=== PATIENT | female | born 1970 | race African-American/Black ===

== ENCOUNTER → 2018-09-25 | Outpatient (CLI) | payer OTHER ==
[2015-12-29 14:50] VITALS: BP 126/65
[~2018-09-25] MED LIST: DOCU-109 PO; ERGO500027 PO; FENO48TA16 PO; FLUO20CA16 PO; FLUT9.9S NS; HYDR12.58 PO; LORA5SOL7 PO; OXYC1TAB15 PO; PEG15DRO2 OP; PHEN15CA2 PO; VARE1TAB21 PO; ZOLP5TAB PO
--- NOTE | 2018-09-25 09:51 | KCIC ---
EXAM: Bilateral diagnostic mammogram. HISTORY: 47-year-old female presents with asymmetry and right greater than left breast size. TECHNIQUE: Full-field digital craniocaudal and mediolateral oblique views of both breasts are obtained for evaluation. Computer aided detection with U[employer]ense[employer] software version 9.3 was applied. COMPARISON: 01/03/2016, 12/26/2015, 08/25/2014 BREAST PARENCHYMAL DENSITY: Level B - Scattered fibroglandular densities. FINDINGS: There is no new suspicious mass, microcalcification or region of architectural distortion. There is stable mild asymmetry in the size of the right greater than left breast. The greater than 4 year course of stability favors physiologic asymmetry. There is stable nodular densities when allowing for differences in patient positioning. There is no new suspicious mammographic finding. IMPRESSION: BI-RADS Category 2: Benign finding(s). RECOMMENDATION: Annual mammography is recommended. If your mammogram demonstrates that you have dense breast tissue, which could hide abnormalities, and if you have other risk factors for breast cancer that have been identified, you might benefit from supplemental screening tests that may be suggested by your ordering physician. Dense breast tissue, in and of itself, is a relatively common condition. This information is not provided to cause undue concern, but rather to raise your awareness and to promote discussion with your physician regarding the presence of other risk factors, in addition to dense breast tissue. A report of your mammography results will be sent to you and your physician. You should contact your physician if you have any questions or concerns regarding this report. Mammography is a sensitive method for finding small breast cancers, but it does not detect them all and is not a substitute for careful clinical examination. A negative mammogram does not negate a clinically suspicious finding and should not result in delay in biopsying a clinically suspicious abnormality. PQRS compliance statement - Patient information was entered into a reminder system with a target due date for the next mammogram. "Our facility is accredited by the [employer] Mammography Program." Electronically signed by: Lizet Kline MD (09/25/2018 9:48 AM) [facility]
== END | disposition home or self-care (01) ==
LOC: KCIC MAMMO 08:50
PROVIDERS: ATTEND Nurse Practitioner Family
DX: N62 Hypertrophy of breast (principal); N64.89 Other specified disorders of breast
CPT/HCPCS: 77066

== ENCOUNTER 2018-10-12 05:35 | Inpatient (IN) | payer OTHER ==
[~2018-10-12] VITALS: Ht 180.3 cm; Wt 133.8 kg
[2018-10-12] VITALS (11 sets, daily range): BP systolic 120–139; BP diastolic 75–82
[~2018-10-12 05:35] MED LIST changes: -DOCU-109 PO; -ERGO500027 PO; -FENO48TA16 PO; -FLUT9.9S NS; -HYDR12.58 PO; -OXYC1TAB15 PO; -PEG15DRO2 OP; -VARE1TAB21 PO
[2018-10-12] MEDS ORDERED: FAMOTIDINE 20 MG/2 ML VIAL IVP ONE (06:00)
[2018-10-12] MEDS ORDERED: IV NORMAL SALINE 1000ML BAG 1,000 ML IV ONE (06:00)
[2018-10-12] MEDS ORDERED: ONDANSETRON PF 4 MG/2 ML VIAL. IV ONE (06:00)
[2018-10-12] MEDS ORDERED: KETOROLAC 30 MG/ML VIAL. IV ONE (06:00)
--- NOTE | 2018-10-12 06:30 | PHYS DOC ---
Adult General Chief Complaint Chief Complaint: ABDOMINAL PAIN HPI HPI Patient is a 47 year old female who presents with complaining of abdominal pain and nausea and vomiting. Patient states she woke up at 0440 this morning with cramping generalized abdominal pain without radiation and nausea. Patient states she had 1 episode of nonbloody vomiting and a normal bowel movement. Patient rated her pain 9/10 and denies fever and chills, urinary symptoms, chest pain and shortness of breath. Patient states she had few episodes of mild abdominal pain in period of several months and did not seek medical attention. Review of Systems Review of Systems Constitutional: Denies fever or chills [] Eyes: Denies change in visual acuity, redness, or eye pain [] HENT: Denies nasal congestion or sore throat [] Respiratory: Denies cough or shortness of breath [] Cardiovascular: No additional information not addressed in HPI [] GI: Reports abdominal pain, nausea, vomiting, denies bloody stools or diarrhea [] : Denies dysuria or hematuria [] Musculoskeletal: Denies back pain or joint pain [] Integument: Denies rash or skin lesions [] Neurologic: Denies headache, focal weakness or sensory changes [] Endocrine: Denies polyuria or polydipsia [] All other systems were reviewed and found to be within normal limits, except as documented in this note. Current Medications Current Medications Current Medications Medications (Trade) Dose Ordered Sig/Dianne Start Time Stop Time Status Last Admin Dose Admin Famotidine (Pepcid Vial) 20 mg 1X ONCE 10/12/18 06:00 10/12/18 06:01 DC 10/12/18 06:24 20 MG Fentanyl Citrate (Fentanyl 2ml Vial) 50 mcg 1X ONCE 10/12/18 10:00 10/12/18 10:01 DC 10/12/18 10:03 50 MCG Ketorolac Tromethamine (Toradol 30mg Vial) 15 mg 1X ONCE 10/12/18 06:00 10/12/18 06:01 DC 10/12/18 06:25 15 MG Ondansetron HCl (Zofran) 4 mg 1X ONCE 10/12/18 06:00 10/12/18 06:01 DC 10/12/18 06:24 4 MG Sodium Chloride 1,000 ml @ 1,000 mls/hr 1X ONCE 10/12/18 06:00 10/12/18 06:59 DC 10/12/18 06:24 1,000 MLS/HR Allergies Allergies Allergies Coded Allergies Type Severity Reaction Last Updated Verified Penicillins Allergy Intermediate 12/29/15 No Physical Exam Physical Exam Constitutional: Well developed, well nourished, mild distress, non-toxic appearance. [] HENT: Normocephalic, atraumatic, oropharynx moist. Eyes: PERRLA, EOMI, conjunctiva normal, no discharge. [] Neck: Normal range of motion, no tenderness, supple, no stridor. [] Cardiovascular:Heart rate regular rhythm, no murmur [] Lungs & Thorax: Bilateral breath sounds clear to auscultation [] Abdomen: Bowel sounds normal, soft, positive Rodrigez's sign, no masses, no pulsatile masses. [] Skin: Warm, dry, no erythema, no rash. [] Back: No tenderness, no CVA tenderness. [] Extremities: No tenderness, no cyanosis, no clubbing, ROM intact, no edema. [] Neurologic: Alert and oriented X 3, normal motor function, normal sensory function, no focal deficits noted. [] Psychologic: Affect normal, judgement normal, mood normal. [] Current Patient Data Vital Signs Vital Signs Date Time Temp Pulse Resp B/P (MAP) Pulse Ox O2 Delivery O2 Flow Rate FiO2 10/12/18 10:03 18 98 10/12/18 06:43 98.0 81 134/73 (93) Room Air 98.0 Lab Values Laboratory Tests Test 10/12/18 05:00 10/12/18 05:13 10/12/18 05:55 Troponin I Quantitative < 0.017 ng/mL (0.000-0.055) White Blood Count 5.8 x10^3/uL (4.0-11.0) Red Blood Count 4.75 x10^6/uL (3.50-5.40) Hemoglobin 12.5 g/dL (12.0-15.5) Hematocrit 38.4 % (36.0-47.0) Mean Corpuscular Volume 81 fL (79-100) Mean Corpuscular Hemoglobin 26 pg (25-35) Mean Corpuscular Hemoglobin Concent 33 g/dL (31-37) Red Cell Distribution Width 15.7 % (11.5-14.5) H Platelet Count 162 x10^3/uL (140-400) Neutrophils (%) (Auto) 61 % (31-73) Lymphocytes (%) (Auto) 29 % (24-48) Monocytes (%) (Auto) 8 % (0-9) Eosinophils (%) (Auto) 1 % (0-3) Basophils (%) (Auto) 0 % (0-3) Neutrophils # (Auto) 3.5 x10^3uL (1.8-7.7) Lymphocytes # (Auto) 1.7 x10^3/uL (1.0-4.8) Monocytes # (Auto) 0.5 x10^3/uL (0.0-1.1) Eosinophils # (Auto) 0.1 x10^3/uL (0.0-0.7) Basophils # (Auto) 0.0 x10^3/uL (0.0-0.2) Sodium Level 144 mmol/L (136-145) Potassium Level 3.9 mmol/L (3.5-5.1) Chloride Level 106 mmol/L (98-107) Carbon Dioxide Level 29 mmol/L (21-32) Anion Gap 9 (6-14) Blood Urea Nitrogen 21 mg/dL (7-20) H Creatinine 1.0 mg/dL (0.6-1.0) Estimated GFR (Cockcroft-Gault) 72.5 BUN/Creatinine Ratio 21 (6-20) H Glucose Level 110 mg/dL (70-99) H Calcium Level 9.0 mg/dL (8.5-10.1) Magnesium Level 1.8 mg/dL (1.8-2.4) Total Bilirubin 0.2 mg/dL (0.2-1.0) Aspartate Amino Transferase (AST) 39 U/L (15-37) H Alanine Aminotransferase (ALT) 64 U/L (14-59) H Alkaline Phosphatase 78 U/L (46-116) Total Protein 7.0 g/dL (6.4-8.2) Albumin 3.3 g/dL (3.4-5.0) L Albumin/Globulin Ratio 0.9 (1.0-1.7) L Lipase 178 U/L (73-393) Urine Collection Type Unknown Urine Color Yellow Urine Clarity Clear Urine pH 5.5 Urine Specific [place] >=1.030 Urine Protein Negative mg/dL (NEG-TRACE) Urine Glucose (UA) Negative mg/dL (NEG) Urine Ketones (Stick) Negative mg/dL (NEG) Urine Blood Negative (NEG) Urine Nitrite Negative (NEG) Urine Bilirubin Negative (NEG) Urine Urobilinogen Dipstick 0.2 mg/dL (0.2 mg/dL) Urine Leukocyte Esterase Negative (NEG) Urine RBC 0 /HPF (0-2) Urine WBC 0 /HPF (0-4) Urine Squamous Epithelial Cells Few /LPF Urine Bacteria 0 /HPF (0-FEW) Laboratory Tests 10/12/18 05:13 Laboratory Tests 10/12/18 05:13 EKG EKG [] Radiology/Procedures Radiology/Procedures [facility] [address] [place] [address] IMAGING REPORT Signed PATIENT: ISIDRA LYNCH ACCOUNT: [id number] : 1970 LOCATION: ER AGE: 47 SEX: F EXAM STATUS: REG ER ORD. PHYSICIAN: LISSETTE LOCKHART MD REASON: abdominal pain and nausea and vomiting. PROCEDURE: ABDOMEN LTD Examination: Ultrasound abdomen limited History: History of abdominal pain, nausea, vomiting Comparison: None available Findings: Examination limited due to patient body habitus. The echogenicity of the liver grossly appears unremarkable the common bile duct measures 2.8 mm in transverse dimension. Echogenicity is identified in the gallbladder likely gallstones. The right kidney measures 12.4 cm in length. Impression: Cholelithiasis. DICTATED and SIGNED BY: YOSEF PEDRAZA MD DATE: 10/12/18 0956 Course & Med Decision Making Course & Med Decision Making Pertinent Labs and Imaging studies reviewed. (See chart for details) Evaluation of patient in ER showed 47-year-old male patient with complaining of abdominal pain and nausea and vomiting. Patient had positive Rodrigez sign with elevation of liver function tests. Patient had coronary ecchymoses. Patient felt better with treatment with IV fluid, Zofran, Toradol and fentanyl in ER. On- call surgeon Dr. Espinosa consulted at [facility] and recommended to admit patient for possible cholecystectomy today.Patient requiring admission for further evaluation and treatment. Discussed with Dr. Copeland who is in agreement with admission. Discussed findings and plan with patient and family, who acknowledge understanding and agreement. Dragon Disclaimer Dragon Disclaimer This electronic medical record was generated, in whole or in part, using a voice recognition dictation system. Departure Departure Impression: Primary Impression: Biliary colic Additional Impressions: Cholelithiasis Dehydration Elevated liver function tests Morbid obesity with BMI of 40.0-44.9, adult Disposition: 09 ADMITTED INPATIENT (at 1029) Admitting Physician: MARY (Dr. Copeland accepted admission at 1028) Condition: IMPROVED Referrals: BIENVENIDO JACOBS-[facility] (PCP) Problem Qualifiers Additional Impressions: Cholelithiasis Cholelithiasis location: gallbladder Cholecystitis presence: with cholecystitis Cholecystitis acuity: acute Biliary obstruction: without biliary obstruction Qualified Codes: K80.00 - Calculus of gallbladder with acute cholecystitis without obstruction LISSETTE LOCKHART MD Oct 12, 2018 06:30
[2018-10-12 06:42] LABS: GFR 72.5; POTASSIUM 3.9 mmol/L (3.5-5.1)
[2018-10-12 06:54] LABS: ALBUMIN 3.3 g/dL (3.4-5.0); ALBUMIN/GLOBULIN RATIO 0.9 (1.0-1.7); MAGNESIUM 1.8 mg/dL (1.8-2.4); TOTAL BILIRUBIN 0.2 mg/dL (0.2-1.0)
[2018-10-12 06:58] LABS: BILIRUBIN,URINE NEGATIVE (NEG); CLARITY,URINE CLEAR; COLOR,URINE YELLOW; NITRITE,URINE NEGATIVE (NEG); PH,URINE 5.5; PROTEIN,URINE NEGATIVE (NEG-TRACE); UROBILINOGEN,URINE 0.2 mg/dL (0.2 mg/dL)
[2018-10-12 07:13] LABS: BACTERIA,URINE 0 /HPF (0-FEW); RBC,URINE 0 /HPF (0-2); SQUAMOUS EPITHELIAL CELL,UR FEW /LPF; WBC,URINE 0 /HPF (0-4)
[2018-10-12 07:13] LABS: BASO % 0 % (0-3); EOS # 0.1 x10^3/uL (0.0-0.7); EOS % 1 % (0-3); HEMATOCRIT 38.4 % (36.0-47.0); HEMOGLOBIN 12.5 g/dL (12.0-15.5); LYMPH # 1.7 x10^3/uL (1.0-4.8); LYMPH % 29 % (24-48); MEAN CORPUSCULAR HEMOGLOBIN 26 pg (25-35); MEAN CORPUSCULAR HGB CONC 33 g/dL (31-37); MEAN CORPUSCULAR VOLUME 81 fL (79-100); MONO # 0.5 x10^3/uL (0.0-1.1); MONO % 8 % (0-9); NEUT # 3.5 x10^3uL (1.8-7.7); NEUT % 61 % (31-73); PLATELET COUNT 162 x10^3/uL (140-400); RED BLOOD COUNT 4.75 x10^6/uL (3.50-5.40); RED CELL DISTRIBUTION WIDTH 15.7 % (11.5-14.5); WHITE BLOOD COUNT 5.8 x10^3/uL (4.0-11.0)
[2018-10-12] MEDS ORDERED: fentaNYL PF VIAL 100 MCG/2 ML VIAL IV ONE (10:00)
--- NOTE | 2018-10-12 10:01 | RAD ---
Examination: Ultrasound abdomen limited History: History of abdominal pain, nausea, vomiting Comparison: None available Findings: Examination limited due to patient body habitus. The echogenicity of the liver grossly appears unremarkable the common bile duct measures 2.8 mm in transverse dimension. Echogenicity is identified in the gallbladder likely gallstones. The right kidney measures 12.4 cm in length. Impression: Cholelithiasis.
[2018-10-12] MEDS: IV NORMAL SALINE 1000ML BAG 1,000 ML IV SCH ×2 (10:28→17:08)
--- NOTE | 2018-10-12 11:16 | PDOC1 ---
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 Current Medications: Current Medications Current Medications Ondansetron HCl (Zofran) 4 mg 1X ONCE IV Last administered on 10/12/18at 06:24; Start 10/12/18 at 06:00; Stop 10/12/18 at 06:01; Status DC Famotidine (Pepcid Vial) 20 mg 1X ONCE IVP Last administered on 10/12/18at 06:24; Start 10/12/18 at 06:00; Stop 10/12/18 at 06:01; Status DC Ketorolac Tromethamine (Toradol 30mg Vial) 15 mg 1X ONCE IV Last administered on 10/12/18at 06:25; Start 10/12/18 at 06:00; Stop 10/12/18 at 06:01; Status DC Sodium Chloride 1,000 ml @ 1,000 mls/hr 1X ONCE IV Last administered on 10/12/18at 06:24; Start 10/12/18 at 06:00; Stop 10/12/18 at 06:59; Status DC Fentanyl Citrate (Fentanyl 2ml Vial) 50 mcg 1X ONCE IV Last administered on 10/12/18at 10:03; Start 10/12/18 at 10:00; Stop 10/12/18 at 10:01; Status DC Sodium Chloride 1,000 ml @ 150 mls/hr Q6H40M IV ; Start 10/12/18 at 10:28; Stop 10/13/18 at 10:27 Active Scripts Active Reported Ambien (Zolpidem Tartrate) 5 Mg Tablet 1 Tab PO QHS Claritin (Loratadine) 5 Mg/5 Ml Solution 5 Ml PO DAILY Phentermine Hcl 15 Mg Capsule 1 Cap PO DAILY Prozac (Fluoxetine Hcl) 20 Mg Capsule 1 Cap PO DAILYWBKFT ROS: Review of Systems Review of System REVIEW OF SYSTEMS: GENERAL: Denies weakness SKIN: No bruising, hair changes or rashes. EYES: No blurred, double or loss of vision. NOSE AND THROAT: No history of nosebleeds, hoarseness or sore throat. HEART: No history of palpitations, chest pain or shortness of breath on exertion. LUNGS: Denies cough, hemoptysis, wheezing or shortness of breath. GASTROINTESTINAL: Complains of abdominal pain and nausea GENITOURINARY: No history of frequency, urgency, hesitancy or nocturia. NEUROLOGIC: Denies history of numbness, tingling, tremor or weakness. PSYCHIATRIC: No history of panic, anxiety or depression. ENDOCRINE: No history of heat or cold intolerance, polyuria or polydipsia. EXTREMITIES: Denies muscle weakness, joint pain, pain on walking or stiffness. Physical Exam: Vital Signs: Vital Signs Date Time Temp Pulse Resp B/P (MAP) Pulse Ox O2 Delivery O2 Flow Rate FiO2 10/12/18 10:03 18 98 10/12/18 06:43 98.0 81 134/73 (93) Room Air 98.0 Physcial Exam: GEN.: No apparent distress. Alert and oriented. HEENT: Head is normocephalic, atraumatic NECK: Supple, no JVD LUNGS: Clear to auscultation without rhonchi or wheezing HEART: RRR, S1, S2 present. Peripheral pulses intact ABDOMEN: Soft, nontender. Positive bowel sounds no organomegaly EXTREMITIES: Without any cyanosis, clubbing, or edema. Pedal pulses intact NEUROLOGIC: Normal speech, normal tone. A&O x 3 PSYCHIATRIC: Normal affect, normal mood. Stable SKIN: No ulcerations or rashes VASCULAR: Good capillary refill Labs: Labs: Laboratory Tests Test 10/12/18 05:00 10/12/18 05:13 10/12/18 05:55 Troponin I Quantitative < 0.017 ng/mL (0.000-0.055) White Blood Count 5.8 x10^3/uL (4.0-11.0) Red Blood Count 4.75 x10^6/uL (3.50-5.40) Hemoglobin 12.5 g/dL (12.0-15.5) Hematocrit 38.4 % (36.0-47.0) Mean Corpuscular Volume 81 fL (79-100) Mean Corpuscular Hemoglobin 26 pg (25-35) Mean Corpuscular Hemoglobin Concent 33 g/dL (31-37) Red Cell Distribution Width 15.7 % (11.5-14.5) Platelet Count 162 x10^3/uL (140-400) Neutrophils (%) (Auto) 61 % (31-73) Lymphocytes (%) (Auto) 29 % (24-48) Monocytes (%) (Auto) 8 % (0-9) Eosinophils (%) (Auto) 1 % (0-3) Basophils (%) (Auto) 0 % (0-3) Neutrophils # (Auto) 3.5 x10^3uL (1.8-7.7) Lymphocytes # (Auto) 1.7 x10^3/uL (1.0-4.8) Monocytes # (Auto) 0.5 x10^3/uL (0.0-1.1) Eosinophils # (Auto) 0.1 x10^3/uL (0.0-0.7) Basophils # (Auto) 0.0 x10^3/uL (0.0-0.2) Sodium Level 144 mmol/L (136-145) Potassium Level 3.9 mmol/L (3.5-5.1) Chloride Level 106 mmol/L (98-107) Carbon Dioxide Level 29 mmol/L (21-32) Anion Gap 9 (6-14) Blood Urea Nitrogen 21 mg/dL (7-20) Creatinine 1.0 mg/dL (0.6-1.0) Estimated GFR (Cockcroft-Gault) 72.5 BUN/Creatinine Ratio 21 (6-20) Glucose Level 110 mg/dL (70-99) Calcium Level 9.0 mg/dL (8.5-10.1) Magnesium Level 1.8 mg/dL (1.8-2.4) Total Bilirubin 0.2 mg/dL (0.2-1.0) Aspartate Amino Transf (AST/SGOT) 39 U/L (15-37) Alanine Aminotransferase (ALT/SGPT) 64 U/L (14-59) Alkaline Phosphatase 78 U/L (46-116) Total Protein 7.0 g/dL (6.4-8.2) Albumin 3.3 g/dL (3.4-5.0) Albumin/Globulin Ratio 0.9 (1.0-1.7) Lipase 178 U/L (73-393) Urine Collection Type Unknown Urine Color Yellow Urine Clarity Clear Urine pH 5.5 Urine Specific [place] >=1.030 Urine Protein Negative mg/dL (NEG-TRACE) Urine Glucose (UA) Negative mg/dL (NEG) Urine Ketones (Stick) Negative mg/dL (NEG) Urine Blood Negative (NEG) Urine Nitrite Negative (NEG) Urine Bilirubin Negative (NEG) Urine Urobilinogen Dipstick 0.2 mg/dL (0.2 mg/dL) Urine Leukocyte Esterase Negative (NEG) Urine RBC 0 /HPF (0-2) Urine WBC 0 /HPF (0-4) Urine Squamous Epithelial Cells Few /LPF Urine Bacteria 0 /HPF (0-FEW) Laboratory Tests Test 10/12/18 05:00 10/12/18 05:13 10/12/18 05:55 Troponin I Quantitative < 0.017 ng/mL (0.000-0.055) White Blood Count 5.8 x10^3/uL (4.0-11.0) Red Blood Count 4.75 x10^6/uL (3.50-5.40) Hemoglobin 12.5 g/dL (12.0-15.5) Hematocrit 38.4 % (36.0-47.0) Mean Corpuscular Volume 81 fL (79-100) Mean Corpuscular Hemoglobin 26 pg (25-35) Mean Corpuscular Hemoglobin Concent 33 g/dL (31-37) Red Cell Distribution Width 15.7 % (11.5-14.5) Platelet Count 162 x10^3/uL (140-400) Neutrophils (%) (Auto) 61 % (31-73) Lymphocytes (%) (Auto) 29 % (24-48) Monocytes (%) (Auto) 8 % (0-9) Eosinophils (%) (Auto) 1 % (0-3) Basophils (%) (Auto) 0 % (0-3) Neutrophils # (Auto) 3.5 x10^3uL (1.8-7.7) Lymphocytes # (Auto) 1.7 x10^3/uL (1.0-4.8) Monocytes # (Auto) 0.5 x10^3/uL (0.0-1.1) Eosinophils # (Auto) 0.1 x10^3/uL (0.0-0.7) Basophils # (Auto) 0.0 x10^3/uL (0.0-0.2) Sodium Level 144 mmol/L (136-145) Potassium Level 3.9 mmol/L (3.5-5.1) Chloride Level 106 mmol/L (98-107) Carbon Dioxide Level 29 mmol/L (21-32) Anion Gap 9 (6-14) Blood Urea Nitrogen 21 mg/dL (7-20) Creatinine 1.0 mg/dL (0.6-1.0) Estimated GFR (Cockcroft-Gault) 72.5 BUN/Creatinine Ratio 21 (6-20) Glucose Level 110 mg/dL (70-99) Calcium Level 9.0 mg/dL (8.5-10.1) Magnesium Level 1.8 mg/dL (1.8-2.4) Total Bilirubin 0.2 mg/dL (0.2-1.0) Aspartate Amino Transf (AST/SGOT) 39 U/L (15-37) Alanine Aminotransferase (ALT/SGPT) 64 U/L (14-59) Alkaline Phosphatase 78 U/L (46-116) Total Protein 7.0 g/dL (6.4-8.2) Albumin 3.3 g/dL (3.4-5.0) Albumin/Globulin Ratio 0.9 (1.0-1.7) Lipase 178 U/L (73-393) Urine Collection Type Unknown Urine Color Yellow Urine Clarity Clear Urine pH 5.5 Urine Specific [place] >=1.030 Urine Protein Negative mg/dL (NEG-TRACE) Urine Glucose (UA) Negative mg/dL (NEG) Urine Ketones (Stick) Negative mg/dL (NEG) Urine Blood Negative (NEG) Urine Nitrite Negative (NEG) Urine Bilirubin Negative (NEG) Urine Urobilinogen Dipstick 0.2 mg/dL (0.2 mg/dL) Urine Leukocyte Esterase Negative (NEG) Urine RBC 0 /HPF (0-2) Urine WBC 0 /HPF (0-4) Urine Squamous Epithelial Cells Few /LPF Urine Bacteria 0 /HPF (0-FEW) Images: Images The echogenicity of the liver grossly appears unremarkable the common bile duct measures 2.8 mm in transverse dimension. Echogenicity is identified in the gallbladder likely gallstones. The right kidney measures 12.4 cm in length. Impression: Cholelithiasis. Assessment/Plan Assessment/Plan Symptomatic gallstones Plan Patient is going for laparoscopic cholecystectomy today with Dr. Espinosa For now when necessary antiemetics and when necessary narcotics IV fluids DVT prophylaxis Home meds Frequent labs Full code DEQUAN VALDERRAMA III DO Oct 12, 2018 11:16
[2018-10-12] MEDS ORDERED: SURGICEL HEMOSTAT 4X8 EACH. ONE (12:28)
[2018-10-12] MEDS ORDERED: BUPIVACAINE-EPI 0.25%-1:200000 MPF 30 ML VIAL. ONE (12:28)
--- NOTE | 2018-10-12 12:39 | PDOC2 ---
CONSULT Date of Consult Date of Consult DATE: 10/12/18 TIME: 12:36 Reason for Consult Reason for Consult: Right upper quadrant abdominal pain Referring Physician Referring Physician: Min Identification/Chief Complaint Chief Complaint Right upper quadrant abdominal pain with nausea Source Source: Patient History of Present Illness Reason for Visit: 47-year-old female over the last 3 months has had 3 episodes of right upper quadrant abdominal pain this most recent episode started yesterday was much worse in pain and nausea. She was admitted to the hospital with mildly elevated alkaline phosphatase and transaminases bilirubin normal ultrasound does show gallstones and a positive Rodrigez sign Past Medical History Cardiovascular: Hyperlipidemia Past Surgical History Past Surgical History: Other () Family History Family History: No Significant Social History No ALCOHOL: rare Drugs: None Lives: with Family Current Problem List Problem List Problems Medical Problems: (1) Biliary colic Status: Acute (2) Cholelithiasis Status: Acute (3) Dehydration Status: Acute (4) Elevated liver function tests Status: Acute (5) Morbid obesity with BMI of 40.0-44.9, adult Status: Acute Current Medications Current Medications Current Medications Ondansetron HCl (Zofran) 4 mg 1X ONCE IV Last administered on 10/12/18at 06:24; Start 10/12/18 at 06:00; Stop 10/12/18 at 06:01; Status DC Famotidine (Pepcid Vial) 20 mg 1X ONCE IVP Last administered on 10/12/18at 06:24; Start 10/12/18 at 06:00; Stop 10/12/18 at 06:01; Status DC Ketorolac Tromethamine (Toradol 30mg Vial) 15 mg 1X ONCE IV Last administered on 10/12/18at 06:25; Start 10/12/18 at 06:00; Stop 10/12/18 at 06:01; Status DC Sodium Chloride 1,000 ml @ 1,000 mls/hr 1X ONCE IV Last administered on 10/12/18at 06:24; Start 10/12/18 at 06:00; Stop 10/12/18 at 06:59; Status DC Fentanyl Citrate (Fentanyl 2ml Vial) 50 mcg 1X ONCE IV Last administered on 10/12/18at 10:03; Start 10/12/18 at 10:00; Stop 10/12/18 at 10:01; Status DC Sodium Chloride 1,000 ml @ 150 mls/hr Q6H40M IV ; Start 10/12/18 at 10:28; Stop 10/13/18 at 10:27 Active Scripts Active Reported Ambien (Zolpidem Tartrate) 5 Mg Tablet 1 Tab PO QHS Claritin (Loratadine) 5 Mg/5 Ml Solution 5 Ml PO DAILY Phentermine Hcl 15 Mg Capsule 1 Cap PO DAILY Prozac (Fluoxetine Hcl) 20 Mg Capsule 1 Cap PO DAILYWBKFT Allergies Allergies: Coded Allergies: Penicillins (Unverified Allergy, Intermediate, 12/29/15) ROS Gastrointestinal: Yes Nausea, Yes Abdominal Pain Physical Exam General: Alert, Oriented X3, Cooperative, mild distress HEENT: Atraumatic, PERRLA, EOMI Lungs: Clear to auscultation, Normal air movement Heart: Regular rate, No murmurs Abdomen: Normal bowel sounds, Soft, Other (tender to palpation right upper quadrant) Extremities: No edema Skin: No significant lesion Neuro: Normal speech Psych/Mental Status: Mental status NL Vitals VITALS Vital Signs Date Time Temp Pulse Resp B/P (MAP) Pulse Ox O2 Delivery O2 Flow Rate FiO2 10/12/18 10:03 18 98 10/12/18 06:43 98.0 81 134/73 (93) Room Air 98.0 Labs Labs Laboratory Tests Test 10/12/18 05:00 10/12/18 05:13 10/12/18 05:55 Troponin I Quantitative < 0.017 ng/mL (0.000-0.055) White Blood Count 5.8 x10^3/uL (4.0-11.0) Red Blood Count 4.75 x10^6/uL (3.50-5.40) Hemoglobin 12.5 g/dL (12.0-15.5) Hematocrit 38.4 % (36.0-47.0) Mean Corpuscular Volume 81 fL (79-100) Mean Corpuscular Hemoglobin 26 pg (25-35) Mean Corpuscular Hemoglobin Concent 33 g/dL (31-37) Red Cell Distribution Width 15.7 % (11.5-14.5) Platelet Count 162 x10^3/uL (140-400) Neutrophils (%) (Auto) 61 % (31-73) Lymphocytes (%) (Auto) 29 % (24-48) Monocytes (%) (Auto) 8 % (0-9) Eosinophils (%) (Auto) 1 % (0-3) Basophils (%) (Auto) 0 % (0-3) Neutrophils # (Auto) 3.5 x10^3uL (1.8-7.7) Lymphocytes # (Auto) 1.7 x10^3/uL (1.0-4.8) Monocytes # (Auto) 0.5 x10^3/uL (0.0-1.1) Eosinophils # (Auto) 0.1 x10^3/uL (0.0-0.7) Basophils # (Auto) 0.0 x10^3/uL (0.0-0.2) Sodium Level 144 mmol/L (136-145) Potassium Level 3.9 mmol/L (3.5-5.1) Chloride Level 106 mmol/L (98-107) Carbon Dioxide Level 29 mmol/L (21-32) Anion Gap 9 (6-14) Blood Urea Nitrogen 21 mg/dL (7-20) Creatinine 1.0 mg/dL (0.6-1.0) Estimated GFR (Cockcroft-Gault) 72.5 BUN/Creatinine Ratio 21 (6-20) Glucose Level 110 mg/dL (70-99) Calcium Level 9.0 mg/dL (8.5-10.1) Magnesium Level 1.8 mg/dL (1.8-2.4) Total Bilirubin 0.2 mg/dL (0.2-1.0) Aspartate Amino Transf (AST/SGOT) 39 U/L (15-37) Alanine Aminotransferase (ALT/SGPT) 64 U/L (14-59) Alkaline Phosphatase 78 U/L (46-116) Total Protein 7.0 g/dL (6.4-8.2) Albumin 3.3 g/dL (3.4-5.0) Albumin/Globulin Ratio 0.9 (1.0-1.7) Lipase 178 U/L (73-393) Urine Collection Type Unknown Urine Color Yellow Urine Clarity Clear Urine pH 5.5 Urine Specific [place] >=1.030 Urine Protein Negative mg/dL (NEG-TRACE) Urine Glucose (UA) Negative mg/dL (NEG) Urine Ketones (Stick) Negative mg/dL (NEG) Urine Blood Negative (NEG) Urine Nitrite Negative (NEG) Urine Bilirubin Negative (NEG) Urine Urobilinogen Dipstick 0.2 mg/dL (0.2 mg/dL) Urine Leukocyte Esterase Negative (NEG) Urine RBC 0 /HPF (0-2) Urine WBC 0 /HPF (0-4) Urine Squamous Epithelial Cells Few /LPF Urine Bacteria 0 /HPF (0-FEW) Laboratory Tests Test 10/12/18 05:00 10/12/18 05:13 10/12/18 05:55 Troponin I Quantitative < 0.017 ng/mL (0.000-0.055) White Blood Count 5.8 x10^3/uL (4.0-11.0) Red Blood Count 4.75 x10^6/uL (3.50-5.40) Hemoglobin 12.5 g/dL (12.0-15.5) Hematocrit 38.4 % (36.0-47.0) Mean Corpuscular Volume 81 fL (79-100) Mean Corpuscular Hemoglobin 26 pg (25-35) Mean Corpuscular Hemoglobin Concent 33 g/dL (31-37) Red Cell Distribution Width 15.7 % (11.5-14.5) Platelet Count 162 x10^3/uL (140-400) Neutrophils (%) (Auto) 61 % (31-73) Lymphocytes (%) (Auto) 29 % (24-48) Monocytes (%) (Auto) 8 % (0-9) Eosinophils (%) (Auto) 1 % (0-3) Basophils (%) (Auto) 0 % (0-3) Neutrophils # (Auto) 3.5 x10^3uL (1.8-7.7) Lymphocytes # (Auto) 1.7 x10^3/uL (1.0-4.8) Monocytes # (Auto) 0.5 x10^3/uL (0.0-1.1) Eosinophils # (Auto) 0.1 x10^3/uL (0.0-0.7) Basophils # (Auto) 0.0 x10^3/uL (0.0-0.2) Sodium Level 144 mmol/L (136-145) Potassium Level 3.9 mmol/L (3.5-5.1) Chloride Level 106 mmol/L (98-107) Carbon Dioxide Level 29 mmol/L (21-32) Anion Gap 9 (6-14) Blood Urea Nitrogen 21 mg/dL (7-20) Creatinine 1.0 mg/dL (0.6-1.0) Estimated GFR (Cockcroft-Gault) 72.5 BUN/Creatinine Ratio 21 (6-20) Glucose Level 110 mg/dL (70-99) Calcium Level 9.0 mg/dL (8.5-10.1) Magnesium Level 1.8 mg/dL (1.8-2.4) Total Bilirubin 0.2 mg/dL (0.2-1.0) Aspartate Amino Transf (AST/SGOT) 39 U/L (15-37) Alanine Aminotransferase (ALT/SGPT) 64 U/L (14-59) Alkaline Phosphatase 78 U/L (46-116) Total Protein 7.0 g/dL (6.4-8.2) Albumin 3.3 g/dL (3.4-5.0) Albumin/Globulin Ratio 0.9 (1.0-1.7) Lipase 178 U/L (73-393) Urine Collection Type Unknown Urine Color Yellow Urine Clarity Clear Urine pH 5.5 Urine Specific [place] >=1.030 Urine Protein Negative mg/dL (NEG-TRACE) Urine Glucose (UA) Negative mg/dL (NEG) Urine Ketones (Stick) Negative mg/dL (NEG) Urine Blood Negative (NEG) Urine Nitrite Negative (NEG) Urine Bilirubin Negative (NEG) Urine Urobilinogen Dipstick 0.2 mg/dL (0.2 mg/dL) Urine Leukocyte Esterase Negative (NEG) Urine RBC 0 /HPF (0-2) Urine WBC 0 /HPF (0-4) Urine Squamous Epithelial Cells Few /LPF Urine Bacteria 0 /HPF (0-FEW) Images Images Ultrasound showing gallstones positive Rodrigez sign Assessment/Plan Assessment/Plan Chronic cholecystitis cholelithiasis plan laparoscopic cholecystectomy ANTONELLA RODRIGUEZ MD Oct 12, 2018 12:39
[2018-10-12] MEDS ORDERED: IV RINGERS,LACTATED 1000ML 1,000 ML IV SCH (13:10)
[2018-10-12] MEDS ORDERED: MORPHINE SULFATE 2 MG/ML VIAL. IV PRN (13:15)
[2018-10-12] MEDS ORDERED: ONDANSETRON PF 4 MG/2 ML VIAL. IV PRN ×2 (13:15→18:30)
[2018-10-12] MEDS ORDERED: fentaNYL PF VIAL 100 MCG/2 ML VIAL IV PRN ×2 (13:15→18:30)
[2018-10-12] MEDS ORDERED: PROCHLORPERAZINE 10 MG/2 ML VIAL. IV PRN (13:15)
[2018-10-12] MEDS ORDERED: HYDROmorphone 2 MG/ML VIAL IV PRN (13:15)
[2018-10-12] MEDS ORDERED: NEOSTIGMINE METHYLSULFATE 5 MG/5 ML SYRINGE. ONE (13:20)
[2018-10-12] MEDS ORDERED: GLYCOPYRROLATE 1 MG/5 ML VIAL. ONE (13:20)
[2018-10-12] MEDS ORDERED: ROCURONIUM 50 MG/5 ML VIAL. ONE (13:20)
[2018-10-12] MEDS ORDERED: SEVOFLURANE 61 TO 120 MINUTES. IH ONE (13:21)
[2018-10-12] MEDS ORDERED: KETOROLAC 30 MG/ML INJ FOR OR. INJ ONE (13:21)
[2018-10-12] MEDS ORDERED: ONDANSETRON PF 4 MG/2 ML VIAL. ONE (13:21)
[2018-10-12] MEDS ORDERED: PROPOFOL 20 ML IV ONE (13:21)
[2018-10-12] MEDS ORDERED: LIDOCAINE 2% PF 5 ML VIAL. ONE (13:21)
[2018-10-12] MEDS ORDERED: DEXAMETHASONE SOD PHOS 4 MG/ML VIAL ONE ×2 (13:21)
--- NOTE | 2018-10-12 14:55 | PDOC4 ---
Operative Note Operative Note Date: 10/12/2018 Preoperative diagnosis: Acute cholecystitis cholelithiasis Postoperative diagnosis: Same Procedure: Laparoscopic cholecystectomy Surgeon: Jesús Specimen: Gallbladder Dictation: Patient is a 47-year-old female is better the hospital with right upper quadrant abdominal pain and ultrasound showing gallstones and mildly elevated LFTs. Procedure lap scopic cholecystectomy was explained to the patient detail risk benefits were also discussed including bleeding infection injury to intra-abdominal contents possibly necessitating further or open operations alternatives to this procedure also discussed with the patient is seemed to understand gave both verbal and written consent had the procedure performed. Patient was taken to the operating room placed in supine position general anesthesia was initiated once patient was sleep and intubated her abdomen was prepped and draped usual sterile fashion using ChloraPrep. Just below the umbilicus was injected with quarter percent Marcaine with epinephrine incision was made 11 blade scalpel Veress needle was placed within the abdomen creating pneumoperitoneum once this complete 11 mm port was placed and a 5 mm camera was placed within the abdomen which was inspected no other abdomen maladies were noted. A 5mm Port was placed in the epigastrium a 5mm Port was placed in the right mid abdomen and a 5 mm port was placed in the lateral right abdomen all under direct visualization the dome of the gallbladder was grasped and retracted cephalad infundibulum of the gallbladder is grasped retracted laterally exposing the triangle. The adherent tissues the triangle were taken down with blunt dissection exposing the cystic duct and cystic artery both were doubly clipped and transected the gallbladder was taken off the liver with hook electrocautery placed in Endo Catch bag and removed from the umbilicus right upper quadrant was irrigated and suctioned dry hemostasis was deemed to be appropriate and the pneumoperitoneum was reduced all ports removed the fascial defect at the umbilicus was closed with [id number] 0 Vicryl suture and the skin was approximated all port sites with 40 subarticular Monocryl Mastisol Steri-Strips and island dressings were applied. Patient was awakened and asked bated operating room taken to recovery in stable condition all sponge instrument needle counts listed as correct estimated blood loss 10 mL ANTONELLA RODRIGUEZ MD Oct 12, 2018 14:54
[2018-10-12] MEDS ORDERED: oxyCODONE/APAP 5/325 1 TAB TABLET PO PRN (15:00)
[2018-10-12] MEDS: fentaNYL PF VIAL 100 MCG/2 ML VIAL IV PRN ×2 (15:17→17:03)
[2018-10-12] MEDS: KETOROLAC 15 MG/ML VIAL. IV SCH (17:02)
[2018-10-12] MEDS ORDERED: VARE1TAB21 PO (19:41)
[2018-10-12] MEDS ORDERED: HYDR12.58 PO (19:41)
[2018-10-12] MEDS ORDERED: FLUT9.9S NS (19:41)
[2018-10-12] MEDS ORDERED: ERGO500027 PO (19:41)
[2018-10-12] MEDS ORDERED: FENO48TA16 PO (19:41)
[2018-10-12] MEDS ORDERED: PEG15DRO2 OP (19:41)
[2018-10-12] MEDS: oxyCODONE/APAP 5/325 1 TAB TABLET PO PRN (20:45)
[2018-10-12] MEDS: ZOLPIDEM 5 MG TABLET. PO PRN ×2 (20:45→23:26)
[2018-10-12] MEDS: VARENICLINE 0.5 MG TABLET. PO SCH (20:45)
[2018-10-13 03:23] VITALS: BP 112/64
[2018-10-13] MEDS: IV NORMAL SALINE 1000ML BAG 1,000 ML IV SCH (03:32)
[2018-10-13] MEDS: KETOROLAC 15 MG/ML VIAL. IV SCH ×3 (05:49→12:00)
[2018-10-13] MEDS: oxyCODONE/APAP 5/325 1 TAB TABLET PO PRN (07:32)
[2018-10-13 07:38] VITALS: BP 123/71
[2018-10-13] MEDS: VARENICLINE 0.5 MG TABLET. PO SCH (09:16)
--- NOTE | 2018-10-13 09:28 | NUR ---
SW following for discharge planning. Discussed with RN, pt is from home with family, surgery yesterday. RN advised no SW needs and anticipates pt could possibly discharge home today with self care.
--- NOTE | 2018-10-13 09:56 | PDOC ---
ANGELIKA SPIVEY DECKHAND ENGINEER 10/13/18 0956: SURGICAL PROGRESS NOTE Subjective tolerating diet incisional soreness with movement urinating no n/v Vital Signs Vital Signs Date Time Temp Pulse Resp B/P (MAP) Pulse Ox O2 Delivery O2 Flow Rate FiO2 10/13/18 07:38 97.4 78 18 123/71 (88) 99 Room Air 97.4 10/12/18 17:33 2.0 I&O Intake and Output 10/13/18 07:00 Intake Total 2990 ml Output Total 10 ml Balance 2980 ml Intake Oral 390 ml IV Total 2250 ml Other 350 ml Output Estimated Blood Loss 10 ml # Voids 4 General: Alert, Oriented X3, Cooperative, No acute distress Abdomen: Soft, Other (lap dressings dry, incisional TTP) Labs Laboratory Tests Test 10/12/18 05:00 10/12/18 05:13 10/12/18 05:55 Troponin I Quantitative < 0.017 ng/mL (0.000-0.055) White Blood Count 5.8 x10^3/uL (4.0-11.0) Red Blood Count 4.75 x10^6/uL (3.50-5.40) Hemoglobin 12.5 g/dL (12.0-15.5) Hematocrit 38.4 % (36.0-47.0) Mean Corpuscular Volume 81 fL (79-100) Mean Corpuscular Hemoglobin 26 pg (25-35) Mean Corpuscular Hemoglobin Concent 33 g/dL (31-37) Red Cell Distribution Width 15.7 % (11.5-14.5) Platelet Count 162 x10^3/uL (140-400) Neutrophils (%) (Auto) 61 % (31-73) Lymphocytes (%) (Auto) 29 % (24-48) Monocytes (%) (Auto) 8 % (0-9) Eosinophils (%) (Auto) 1 % (0-3) Basophils (%) (Auto) 0 % (0-3) Neutrophils # (Auto) 3.5 x10^3uL (1.8-7.7) Lymphocytes # (Auto) 1.7 x10^3/uL (1.0-4.8) Monocytes # (Auto) 0.5 x10^3/uL (0.0-1.1) Eosinophils # (Auto) 0.1 x10^3/uL (0.0-0.7) Basophils # (Auto) 0.0 x10^3/uL (0.0-0.2) Sodium Level 144 mmol/L (136-145) Potassium Level 3.9 mmol/L (3.5-5.1) Chloride Level 106 mmol/L (98-107) Carbon Dioxide Level 29 mmol/L (21-32) Anion Gap 9 (6-14) Blood Urea Nitrogen 21 mg/dL (7-20) Creatinine 1.0 mg/dL (0.6-1.0) Estimated GFR (Cockcroft-Gault) 72.5 BUN/Creatinine Ratio 21 (6-20) Glucose Level 110 mg/dL (70-99) Calcium Level 9.0 mg/dL (8.5-10.1) Magnesium Level 1.8 mg/dL (1.8-2.4) Total Bilirubin 0.2 mg/dL (0.2-1.0) Aspartate Amino Transf (AST/SGOT) 39 U/L (15-37) Alanine Aminotransferase (ALT/SGPT) 64 U/L (14-59) Alkaline Phosphatase 78 U/L (46-116) Total Protein 7.0 g/dL (6.4-8.2) Albumin 3.3 g/dL (3.4-5.0) Albumin/Globulin Ratio 0.9 (1.0-1.7) Lipase 178 U/L (73-393) Urine Collection Type Unknown Urine Color Yellow Urine Clarity Clear Urine pH 5.5 Urine Specific [place] >=1.030 Urine Protein Negative mg/dL (NEG-TRACE) Urine Glucose (UA) Negative mg/dL (NEG) Urine Ketones (Stick) Negative mg/dL (NEG) Urine Blood Negative (NEG) Urine Nitrite Negative (NEG) Urine Bilirubin Negative (NEG) Urine Urobilinogen Dipstick 0.2 mg/dL (0.2 mg/dL) Urine Leukocyte Esterase Negative (NEG) Urine RBC 0 /HPF (0-2) Urine WBC 0 /HPF (0-4) Urine Squamous Epithelial Cells Few /LPF Urine Bacteria 0 /HPF (0-FEW) Problem List Problems Medical Problems: (1) Biliary colic Status: Acute (2) Cholelithiasis Status: Acute (3) Dehydration Status: Acute (4) Elevated liver function tests Status: Acute (5) Morbid obesity with BMI of 40.0-44.9, adult Status: Acute Assessment/Plan s/p igor increase activity ok to dc home script on chart for percocet FU 2 weeks, ANTONELLA Mosley MD 10/13/18 1015: SURGICAL PROGRESS NOTE Assessment/Plan Agree with Rodriguez's assessment and plan. ANGELIKA SPIVEY APRN Oct 13, 2018 09:56 ANTONELLA RODRIGUEZ MD Oct 13, 2018 10:15
[2018-10-13 11:10] VITALS: BP 115/65
[2018-10-13] MEDS ORDERED: OXYC1TAB15 PO (12:27)
[2018-10-13] MEDS ORDERED: DOCU-109 PO (12:27)
--- NOTE | 2018-10-13 12:31 | PDOC3 ---
Discharge Summary Visit Information Date of Admission: Oct 12, 2018 Date of Discharge: Oct 13, 2018 Admitting Diagnosis: acute abd pain Final Diagnosis cholelithiasis biliary colic dehydration obesity, BMI 41 Past Medical/Surgical History: PMH/PSH: Problems Medical Problems: (1) Biliary colic Status: Acute (2) Cholelithiasis Status: Acute (3) Dehydration Status: Acute (4) Elevated liver function tests Status: Acute (5) Morbid obesity with BMI of 40.0-44.9, adult Status: Acute Brief Hospital Course Allergies Allergies Coded Allergies Type Severity Reaction Last Updated Verified Penicillins Allergy Intermediate 10/13/18 Yes Vital Signs Vital Signs Date Time Temp Pulse Resp B/P (MAP) Pulse Ox O2 Delivery O2 Flow Rate FiO2 10/13/18 11:10 97.6 78 18 115/65 (82) 96 Room Air 97.6 10/13/18 08:32 2.0 Lab Results Laboratory Tests Test 10/12/18 05:00 10/12/18 05:13 10/12/18 05:55 Troponin I Quantitative < 0.017 ng/mL (0.000-0.055) White Blood Count 5.8 x10^3/uL (4.0-11.0) Red Blood Count 4.75 x10^6/uL (3.50-5.40) Hemoglobin 12.5 g/dL (12.0-15.5) Hematocrit 38.4 % (36.0-47.0) Mean Corpuscular Volume 81 fL (79-100) Mean Corpuscular Hemoglobin 26 pg (25-35) Mean Corpuscular Hemoglobin Concent 33 g/dL (31-37) Red Cell Distribution Width 15.7 % (11.5-14.5) Platelet Count 162 x10^3/uL (140-400) Neutrophils (%) (Auto) 61 % (31-73) Lymphocytes (%) (Auto) 29 % (24-48) Monocytes (%) (Auto) 8 % (0-9) Eosinophils (%) (Auto) 1 % (0-3) Basophils (%) (Auto) 0 % (0-3) Neutrophils # (Auto) 3.5 x10^3uL (1.8-7.7) Lymphocytes # (Auto) 1.7 x10^3/uL (1.0-4.8) Monocytes # (Auto) 0.5 x10^3/uL (0.0-1.1) Eosinophils # (Auto) 0.1 x10^3/uL (0.0-0.7) Basophils # (Auto) 0.0 x10^3/uL (0.0-0.2) Sodium Level 144 mmol/L (136-145) Potassium Level 3.9 mmol/L (3.5-5.1) Chloride Level 106 mmol/L (98-107) Carbon Dioxide Level 29 mmol/L (21-32) Anion Gap 9 (6-14) Blood Urea Nitrogen 21 mg/dL (7-20) Creatinine 1.0 mg/dL (0.6-1.0) Estimated GFR (Cockcroft-Gault) 72.5 BUN/Creatinine Ratio 21 (6-20) Glucose Level 110 mg/dL (70-99) Calcium Level 9.0 mg/dL (8.5-10.1) Magnesium Level 1.8 mg/dL (1.8-2.4) Total Bilirubin 0.2 mg/dL (0.2-1.0) Aspartate Amino Transf (AST/SGOT) 39 U/L (15-37) Alanine Aminotransferase (ALT/SGPT) 64 U/L (14-59) Alkaline Phosphatase 78 U/L (46-116) Total Protein 7.0 g/dL (6.4-8.2) Albumin 3.3 g/dL (3.4-5.0) Albumin/Globulin Ratio 0.9 (1.0-1.7) Lipase 178 U/L (73-393) Urine Collection Type Unknown Urine Color Yellow Urine Clarity Clear Urine pH 5.5 Urine Specific [place] >=1.030 Urine Protein Negative mg/dL (NEG-TRACE) Urine Glucose (UA) Negative mg/dL (NEG) Urine Ketones (Stick) Negative mg/dL (NEG) Urine Blood Negative (NEG) Urine Nitrite Negative (NEG) Urine Bilirubin Negative (NEG) Urine Urobilinogen Dipstick 0.2 mg/dL (0.2 mg/dL) Urine Leukocyte Esterase Negative (NEG) Urine RBC 0 /HPF (0-2) Urine WBC 0 /HPF (0-4) Urine Squamous Epithelial Cells Few /LPF Urine Bacteria 0 /HPF (0-FEW) Brief Hospital Course Ms. 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[place], admit with abd pain, worse after fatty food, pain was 10/10, taken to the OR, Dr.Jesús, acute igor, Lap igor, some soreness, felt OK off work, 2 weeks no travel one week, she had plans to [facility] by car, in 4 days Discharge Information Condition at Discharge: Improved Follow Up: Weeks Disposition/Orders: D/C to Home Scheduled Docusate Sodium (Colace) 100 Mg Capsule, 100 MG PO DAILY for prevent cons tipation, #30 Prescribed by: ELISE CHARLTON on 10/13/18 1227 Ergocalciferol (Vitamin D2) (Vitamin D2) 50,000 Unit Capsule, 1 CAP PO WEEKLY for supplement, #4 Ref 5 (Reported) Entered as Reported by: Sharyn Brothers on 10/12/181940 Last Taken: 50,00 units wkly Fri on Unknown Date & Time Last Action: Reviewed on 10/12/181940 by Sharyn Brothers Fenofibrate Nanocrystallized (Tricor) 48 Mg Tablet, 1 TAB PO DAILY for high cholesterol, #30 Ref 5 (Reported) Entered as Reported by: Sharyn Brothers on 10/12/181940 Last Taken: 48 mg PO daily on Unknown Date & Time Last Action: Reviewed on 10/12/181940 by Sharyn Brothers Hydrochlorothiazide (Hydrochlorothiazide Tablet) 12.5 Mg Tablet, 12.5 MG PO DAILY for DIURETIC, Ref 0 (Reported) Entered as Reported by: Sharyn Brothers on 10/12/181940 Last Taken: 12.5 mg PO daily on Unknown Date & Time Last Action: Reviewed on 10/12/181940 by Sharyn Brothers Varenicline Tartrate (Chantix) 1 Mg Tablet, 1 MG PO BID for smoking cessation (in process, (Reported) Entered as Reported by: Sharyn Brothers on 10/12/181940 Last Taken: 1 mg PO BID on Unknown Date & Time Last Action: Reviewed on 10/12/181940 by Sharyn Brothers Scheduled PRN Fluticasone Propionate (Flonase Allergy Relief) 9.9 Ml Dayhoit.susp, 2 SPRAYS NS DAILY PRN for ALLERGIES, (Reported) Entered as Reported by: Sharyn Brothers on 10/12/181940 Last Taken: 2 sprays nasal daily on Unknown Date & Time Last Action: Reviewed on 10/12/181940 by Sharyn Brothers Loratadine (Claritin) 5 Mg/5 Ml Solution, 5 ML PO PRN DAILY PRN for ALLERGIES, #150 Ref 2 (Reported) Entered as Reported by: DARRELL SZYMANSKI on 12/29/15919 Last Action: Reviewed on 10/12/181940 by Sharyn Brothers Oxycodone/Apap 5-325 (Percocet 5-325 Mg Tablet ) 1 Each Tablet, 1 TAB PO PRN Q4HRS PRN for PAIN (1st Choice), #30 Prescribed by: ELISE CHARLTON on 10/13/18 1227 Peg 400/Hypromellose/Glycerin (Eye Drop Tears) 15 Ml Drops, 15 ML OP PRN PRN for dry eyes, (Reported) Entered as Reported by: Sharyn Brothers on 10/12/181940 Last Taken: gts both eyes PRN on Unknown Date & Time Last Action: Reviewed on 10/12/181940 by Sharyn Brothers Zolpidem Tartrate (Ambien) 5 Mg Tablet, 1 TAB PO PRN QHS PRN for INSOMNIA, #30 Ref 2 (Reported) Entered as Reported by: DARRELL SZYMANSKI on 12/29/15920 Last Action: Reviewed on 10/12/181940 by Sharyn Brothers Discontinued Medications Phentermine Hcl (Phentermine Hcl) 15 Mg Capsule, 1 CAP PO DAILY, #30 (Reported) Entered as Reported by: DARRELL SZYMANSKI on 12/29/15919 Last Action: Discontinued on 10/12/181940 by Sharyn Brothers Patient Instructions Patient Instructions > 30 min ELISE CHARLTON MD Oct 13, 2018 12:31
--- NOTE | 2018-10-13 14:20 | NUR ---
Discharge Note: ISIDRA LYNCH Discharge instructions and discharge home medications reviewed with Patient and a copy given. All questions have been answered and understanding verbalized. The following instructions and handouts were given: Discharge Teaching and Prescriptions Discontinued lines and drains: PIV Right FA removed, Catheter intact. Patient discharged to Home with Self-Care via Personal Vehicle
--- NOTE | 2018-10-15 13:08 | PATHOLOGY ---
[facility] Accession Number: [id number] . 01 Material submitted: . gallbladder - GALLBLADDER . 01 Clinical history: . Biliary colic, cholelithiasis . 02 Diagnosis: Gallbladder "gallbladder cholecystectomy": - Subacute and chronic cholecystitis with cholelithiasis. - The attached lymph node reveals reactive changes. . (SHA:aníbal; 10/15/2018) QMS/10/15/2018 . 02 Electronically signed: . Calin Spivey MD, Pathologist NPI- [id number] . 01 Gross description: . The specimen is received in formalin, labeled "Luz Maria Foreman, gallbladder", is a previously opened, collapsed gallbladder measuring 9.2 cm in length and 3.0 cm in maximum diameter with a wrinkled, ramos-purple serosa. A 2.0 x 1.2 x 0.5 cm hemorrhagic lymph node is identified in the region of the gallbladder neck. The cystic duct is not dilated. The gallbladder lumen contains scant green-yellow viscous bile. The mucosa is green with cholesterolosis. The wall is fibrous, 0.2 cm in average thickness. Within the container there are two roughly ovoid irregularly surfaced yellow-brown calculi measuring 2.0 x 1.5 x 1.5 cm and 2.2 x 1.8 x 1.7 cm. Infrastructure Design Engineer tissue is submitted as follows: A1. Cystic duct margin and lymph node, bisected. A2. Gallbladder wall. ([facility]; 10/13/2018) SHS/SHS . 02 Pathologist provided ICD-10: K80.12 . 02 CPT . 187036 Specimen Comment: A courtesy copy of this report has been sent to Specimen Comment: [phone], , , . Specimen Comment: Report sent to ,DR VALDERRAMA,DR JACOBS / DR LOCKHART Performed at: [address], [place], [place] [id number] MD Giovanni Díaz MD Phone: [phone] Performed at: [facility] [address] [place], [place] [id number] MD Beny Loera MD Phone: [phone]
== END 2018-10-13 14:24 | disposition home or self-care (01) | DRG 418 ==
LOC: ER 05:35 → 4 NORTH 10:25
PROVIDERS: ADMIT Internal Medicine; ATTEND Internal Medicine
PROC: 0FT44ZZ Resection of Gallbladder, Percutaneous Endoscopic Approach (ICD-10-PCS; principal; 2018-10-12 13:10)
DX: K80.66 Calculus of gallbladder and bile duct with acute and chronic cholecystitis without obstruction (principal); Z68.41 Body mass index [BMI] 40.0-44.9, adult; E66.01 Morbid (severe) obesity due to excess calories; E86.0 Dehydration; F32.9 Major depressive disorder, single episode, unspecified; F41.9 Anxiety disorder, unspecified; E78.5 Hyperlipidemia, unspecified; Z88.0 Allergy status to penicillin
CPT/HCPCS: 36415; 76705; 80053; 81001; 83690; 83735; 84484; 85025; 88304; 96361; 96374; 96375; A7015; J0696; J0780; J1100; J1885; J2001; J2270; J2405; J2704; J2710; J3010; J3490; J7030; J7120; 99285-25